=== PATIENT | male | born 1970 | race Caucasian/White ===

== ENCOUNTER 2019-05-04 23:31 | Inpatient (IN) | payer MEDICAID ==
[~2019-05-04] VITALS: Ht 190.5 cm; Wt 134.1 kg
[2019-05-04] MEDS ORDERED: LISINOPRIL20 MG (23:33)
[2019-05-04] MEDS ORDERED: SYNTHROID112 MCG (23:34)
[2019-05-04 23:49] LABS: HEMATOCRIT 45.9 % (42.0-54.0); LYMPHOCYTES 29.5 % (15-50); MCH 33.2 pg (26.0-34.0); MCHC 34.9 g/dL (31.0-37.0); MCV 95.2 fL (80.0-100.0); MEAN PLATELET VOLUME 8.8 fL (7.4-10.4); NEUTROPHILS 65.8 % (40-80); PLATELET COUNT 289 10x3/uL (130-400); RBC 4.82 10x6/uL (4.20-6.10); RDW 13.4 % (11.5-14.5)
[2019-05-05] VITALS (8 sets, daily range): BP systolic 117–149; BP diastolic 66–96; Ht 190.5 cm; Wt 134.1 kg
[2019-05-05 00:36] LABS: ALBUMIN 3.7 g/dL (3.4-5.0); AMYLASE - SERUM 56 U/L (25-115); BILIRUBIN - TOTAL 0.47 mg/dL (0.2-1.3); CALC OSMOLALITY 280 mosm/kg (275-300); CALCIUM 8.6 mg/dL (8.5-10.1); CARBON DIOXIDE 22.3 mmol/L (21.0-32.0); CHLORIDE - SERUM 105 mmol/L (98-107); CREATININE - SERUM 1.2 mg/dL (0.6-1.3); GLUCOSE 93 mg/dL (74-106); LIPASE 205 U/L (73-393); PROTEIN - SERUM 7.7 g/dL (6.4-8.2); SODIUM 139 mmol/L (136-145); UREA NITROGEN 20 mg/dL (7-18); eGFR NON AFRICAN AMERICAN 68 mL/min (90-120)
[2019-05-05 00:39] LABS: ALKALINE PHOSPHATASE 83 U/L (46-116); ALT (SGPT) 32 U/L (10-68); POTASSIUM - SERUM 4.8 mmol/L (3.5-5.1); TROPONIN-I < 0.017 ng/mL (0.000-0.060)
[2019-05-05 01:59] LABS: APPEARANCE CLEAR (CLEAR); BILIRUBIN NEGATIVE (NEGATIVE); COLOR YELLOW (YELLOW); GLUCOSE NEGATIVE (NEGATIVE); KETONE NEGATIVE (NEGATIVE); NITRITE NEGATIVE (NEGATIVE); PROTEIN NEGATIVE (NEGATIVE); SPECIFIC GRAVITY 1.015 (1.005-1.020); UROBILINOGEN NORMAL (NORMAL)
[2019-05-06 00:18] VITALS: BP 147/76
[2019-05-06 04:00] VITALS: BP 153/91
[2019-05-06 06:08] LABS: ALBUMIN 3.1 g/dL (3.4-5.0); ALKALINE PHOSPHATASE 64 U/L (46-116); CALCIUM 7.9 mg/dL (8.5-10.1); CARBON DIOXIDE 22.4 mmol/L (21.0-32.0); CHLORIDE - SERUM 103 mmol/L (98-107); GLUCOSE 116 mg/dL (74-106); MAGNESIUM - SERUM 1.6 mg/dL (1.8-2.4); PROTEIN - SERUM 6.4 g/dL (6.4-8.2); SODIUM 138 mmol/L (136-145); THYROID STIMULATING HORMONE 6.72 uIU/mL (0.36-3.74); eGFR NON AFRICAN AMERICAN 84 mL/min (90-120)
[2019-05-06 06:12] LABS: ALT (SGPT) 18 U/L (10-68); CALC OSMOLALITY 275 mosm/kg (275-300); POTASSIUM - SERUM 3.2 mmol/L (3.5-5.1); UREA NITROGEN 9 mg/dL (7-18)
[2019-05-06 08:03] VITALS: BP 150/101
[2019-05-06 11:41] VITALS: BP 179/108
[2019-05-06 15:32] LABS: MAGNESIUM - SERUM 1.8 mg/dL (1.8-2.4)
[2019-05-06 15:33] LABS: POTASSIUM - SERUM 3.7 mmol/L (3.5-5.1)
[2019-05-06 15:36] VITALS: BP 150/96
--- NOTE | 2019-05-06 19:01 | MORECARE ---
CASE MANAGEMENT DISCHARGE SUMMARY PATIENT: KODAK DEVINE UNIT: [id number] ADM DATE: 05/05/19 AGE: 49 : 66 SEX: M ROOM/BED: D.2110 AUTHOR: SRINATH FLOWERS PHYSICIAN: REFERRING PHYSICIAN: JAIR BORREGO MD DATE OF SERVICE: 05/06/19 Discharge Plan Patient Name: [facility]ODAK DEVINE [facility] [facility] 1970 Planned Disposition: Anticipated Discharge Date: Discharge Date: Expected LOS: Initial Reviewer: [email or web address] Initial Review Date: 05/05/2019 Generated: 05/06/19 8:01 pm Patient Name: KODAK DEVINE Page [id number] at 1901 All edits/amendments must be made on the electronic document DICTATION DATE: 05/06/191900 METAL CANS SUPERVISOR: DREW 05/06/191900 RPT#: [id number] DC DATE: STATUS: ADM IN [facility] [address] [place] [address] END OF REPORT
[2019-05-06 20:00] VITALS: BP 144/95
[2019-05-07] VITALS: BP 149/86
[2019-05-07 04:00] VITALS: BP 143/98
[2019-05-07 05:14] LABS: BASOPHILS 0.1 % (0-2); EOSINOPHILS 1.8 % (0-7); HEMOGLOBIN 12.5 g/dL (13.5-17.5); IMMATURE GRANULOCYTES 0.3 % (0-5); LYMPHOCYTES 21.1 % (15-50); MCH 32.6 pg (26.0-34.0); MCHC 34.7 g/dL (31.0-37.0); MCV 93.8 fL (80.0-100.0); MEAN PLATELET VOLUME 9.2 fL (7.4-10.4); MONOCYTES 7.2 % (2-11); NEUTROPHILS 69.5 % (40-80); RBC 3.84 10x6/uL (4.20-6.10); RDW 13.4 % (11.5-14.5); WBC 9.6 10x3/uL (4.8-10.8)
[2019-05-07 05:21] LABS: PLATELET COUNT 202 10x3/uL (130-400)
[2019-05-07 05:27] LABS: CALC OSMOLALITY 275 mosm/kg (275-300); CARBON DIOXIDE 26.2 mmol/L (21.0-32.0); CHLORIDE - SERUM 104 mmol/L (98-107); CREATININE - SERUM 0.8 mg/dL (0.6-1.3); GLUCOSE 99 mg/dL (74-106); MAGNESIUM - SERUM 1.8 mg/dL (1.8-2.4); PHOSPHOROUS 1.9 mg/dL (2.5-4.9); POTASSIUM - SERUM 3.2 mmol/L (3.5-5.1); SODIUM 139 mmol/L (136-145); eGFR NON AFRICAN AMERICAN > 90 mL/min (90-120)
[2019-05-07 05:28] LABS: UREA NITROGEN 6 mg/dL (7-18)
[2019-05-07 08:13] VITALS: BP 163/112
[2019-05-07] MEDS ORDERED: LEVAQUIN750 MG PO (11:40)
[2019-05-07] MEDS ORDERED: FLAGYL500 MG PO (11:41)
[2019-05-07] MEDS ORDERED: PROTONIX40 MG PO (11:41)
--- NOTE | 2019-05-07 16:42 | MORECARE ---
CASE MANAGEMENT DISCHARGE SUMMARY PATIENT: KODAK DEVINE UNIT: [id number] ADM DATE: 05/05/19 AGE: 49 : 66 SEX: M ROOM/BED: D.2110 AUTHOR: KRISTIE,DOC PHYSICIAN: REFERRING PHYSICIAN: JAIR BORREGO MD DATE OF SERVICE: 05/07/19 Discharge Plan Patient Name: KODAK DEVINE Facility: [facility]:[place] : 1970 Planned Disposition: Home Anticipated Discharge Date: 05/07/19 Discharge Date: 05/07/2019 Expected LOS: 2 Initial Reviewer: [email or web address] Initial Review Date: 05/05/2019 Generated: 05/07/19 5:41 pm Comments DCP- Discharge Planning Updated by [email or web address]: Diallo Ron on 05/07/19 3:[address] Patient Name: KODAK DEVINE Admission Status: ER Accout number: [id number] Admission Date: 05-05-2019 : 1970 Admission Diagnosis:UNSPECIFIED ABDOMINAL PAIN Attending: JAIR COREY Current LOS: 2 Anticipated DC Date: 05-07-2019 Planned Disposition: Home Primary Insurance: MEDICAID [place] PENDING Discharge Planning Comments: CM MET WITH PT IN ROOM TO DISCUSS DISCHARGE PLANNING AND NEEDS. KODAK DEVINE provided verbal consent to discuss current and ongoing needs with/in the presence of: SPOUSE, VICKI. PT REPORTS LIVING AT HOME INDEPENDENTLY WITH HIS . PT HAS BIPAP FROM [facility] IN [place] WITH [employer] [facility]. PT HAS NO OUTSIDE SERVICES ASSISTING IN THE HOME. CM DISCUSSED AVAILABILITY OF HOME HEALTH, REHAB SERVICES AND MEDICAL EQUIPMENT. PT DENIES DISCHARGE NEEDS, REPORTS HIS WILL PICK HIM UP FOR DISCHARGE HOME. Resolution Manager: Diallo Ron DCPIA - Discharge Planning Initial Assessment Updated by [email or web address]: Diallo Ron on 05/07/19 4:38 pm * Is the patient Alert and Oriented? Yes * How many steps to enter\exit or inside your home? * PCP NONE * Pharmacy [facility] * Preadmission Environment Home with Family * ADLs Independent * Equipment BIPAP * Other Equipment [place], [place] * List name and contact numbers for known caregivers / representatives who currently or will assist patient after discharge: VICKI DEVINE, SPOUSE, * Verbal permission to speak to the caregivers and representatives has been obtained from the patient. Yes * Community resources currently utilized None * Please name any agencies selected above. NONE * Additional services required to return to the preadmission environment? No * Can the patient safely return to the preadmission environment? Yes * Has this patient been hospitalized within the prior 30 days at any hospital? No Last DP export: 05/06/19 6:01 p Patient Name: KODAK DEVINE Page [phone] at 1642 All edits/amendments must be made on the electronic document DICTATION DATE: 05/07/191640 MILLER KILN DRIED SALT: DREW 05/07/191640 RPT#: [id number] DC DATE:05/07/19 STATUS: DIS IN [facility] [address] [place] [address] END OF REPORT
== END 2019-05-07 12:45 | disposition home or self-care (01) | DRG 392 ==
LOC: D.ER 23:31 → D.M2 05-05 02:53
PROVIDERS: Family Medicine; Internal Medicine Nephrology; ADMIT Family Medicine; ATTEND Family Medicine
DX: K57.92 Diverticulitis of intestine, part unspecified, without perforation or abscess without bleeding (principal); N17.9 Acute kidney failure, unspecified; F17.213 Nicotine dependence, cigarettes, with withdrawal; I10 Essential (primary) hypertension; E03.9 Hypothyroidism, unspecified; E87.6 Hypokalemia; E83.42 Hypomagnesemia

== ENCOUNTER 2019-11-01 21:05 | Emergency (ER) | payer MEDICAID ==
[~2019-11-01] VITALS: Ht 190.5 cm; Wt 127.3 kg
[~2019-11-01 21:05] MED LIST: FLAGYL500 MG PO; LEVAQUIN750 MG PO; LISINOPRIL20 MG; PROTONIX40 MG PO; SYNTHROID112 MCG
[2019-11-01 21:15] VITALS: Ht 190.5 cm; Wt 127.3 kg
[2019-11-01] MEDS ORDERED: TAMIFLU75 MG PO (22:33)
[2019-11-01 22:45] VITALS: BP 152/92
== END 2019-11-01 22:45 | disposition home or self-care (01) ==
LOC: D.ER 21:05
DX: J10.1 Influenza due to other identified influenza virus with other respiratory manifestations (principal); I10 Essential (primary) hypertension; E07.9 Disorder of thyroid, unspecified; Z72.0 Tobacco use